=== PATIENT | female | born 1960 | race Caucasian/White ===

== ENCOUNTER → 2018-11-29 09:33 | Outpatient (CLI) | payer OTHER, SELFPAY ==
--- NOTE | 2018-11-29 09:36 | BI_ITS ---
MAMMOGRAPHY - BILATERAL SCREENING REASON FOR EXAM: Female, 58 years old. Routine annual screening examination. PERTINENT HISTORY: Non-contributory. TECHNIQUE: Digital bilateral breast ascencion (3D mammographic acquisition) in the CC and MLO projections. 2-D mediolateral oblique (MLO) and craniocaudad (CC) views of both breasts were obtained. CAD: Full Field Digital Mammography with Computer Added Detection was performed. COMPARISON: Comparison is made with prior study dated September 09, 2017 and July 02, 2016. FINDINGS: Breast Composition: The breasts are heterogeneously dense, which may obscure small masses. There are no dominant masses or suspicious calcifications. No other significant abnormalities are identified. There has been no significant change since the prior study. BI/SCREENING MAMM (CAD), BILAT IMPRESSION: Stable bilateral screening mammogram. Yearly follow-up mammogram recommended. (A) ASSESSMENT CATEGORY: BIRADS Category 1: Negative. A letter regarding these results will be sent to the patient by the facility within 30 days. Approximately 10% of breast cancers are not detected by mammography. A normal mammogram should not delay biopsy of a clinically suspicious abnormality. [id number] Electronically Signed: Hector Medrano MD at 14:48 EST , Service support ,
== END ==
PROVIDERS: Family Provider Internal Medicine; PCP Internal Medicine; Referring Provider Obstetrics & Gynecology; Visit Provider Obstetrics & Gynecology
DX: Z12.31 Encounter for screening mammogram for malignant neoplasm of breast (principal)
CPT/HCPCS: 77063; 77067

== ENCOUNTER → 2019-05-11 09:35 | Outpatient (CLI) | payer OTHER, SELFPAY ==
[2019-04-19 16:03] VITALS: BMI 20.7
--- NOTE | 2019-05-11 09:37 | ECHOD_ITS ---
Reason For Study: MURMUR Procedure This was a 2D Doppler, Color Flow transthoracic echocardiogram. Exam performed in department. Left Ventricle Normal LV size. Left ventricular systolic function is normal. The estimated ejection fraction is 65 %. No evidence for diastolic dysfunction. No regional wall motion abnormalities noted. Right Ventricle Normal RV size. Normal systolic function. Atria Normal left atrium. Normal right atrium. No doppler evidence for ASD. Mitral Valve There is no mitral annular calcification. Equivocal mitral valve prolapse. Trivial mitral valve insufficiency. Tricuspid Valve Normal tricuspid valve. Trivial tricuspid valve insufficiency. Right ventricular systolic pressure estimated to be 27 mmHg. Aortic Valve Trisinus/trileaflet aortic valve. Normal aortic valve. Pulmonic Valve The pulmonic valve is not well visualized. Great Vessels Normal sized aortic root. Pericardium/Pleural No pericardial effusion. MMode/2D Measurements & Calculations LVIDd: 4.3 cm IVSd: 0.58 cm Ao root diam: 2.5 cm LVIDs: 3.0 cm LVPWd: 0.72 cm RVDd: 3.1 cm FS: 30.6 % LAV(MOD-bp): 32.2 ml LVAd ap4: 24.7 cm2 SV(MOD-sp4): 44.0 ml LAV(MOD-bp) Indexed: 20.3 ml/m2 EDV(MOD-sp4): 70.4 ml LAV(MOD-sp2): 30.2 ml EDV(sp4-el): 74.0 ml LAV(MOD-sp4): 33.9 ml LVAs ap4: 13.7 cm2 ESV(MOD-sp4): 26.5 ml ESV(sp4-el): 26.7 ml EF(MOD-sp4): 62.4 % EF(sp4-el): 64.0 % SV(sp4-el): 47.4 ml LA A4 area: 14.3 cm2 LA dimension(2D): 3.1 cm RA A4 area: 10.9 cm2 Time Measurements MV dec time: 0.20 sec Doppler Measurements & Calculations MV E max artie: 100.4 cm/sec Lat Peak E' Artie: 9.8 cm/sec Med Peak E' Artie: 7.5 cm/sec MV A max artie: 75.6 cm/sec E/E' lat: 10.2 E/E' med: 13.3 MV E/A: 1.3 Ao V2 max: 154.6 cm/sec LV V1 max: 160.1 cm/sec PA V2 max: 89.2 cm/sec Ao max P.6 mmHg LV V1 max P.2 mmHg TR max artie: 242.8 cm/sec TR max P.6 mmHg Interpretation Summary Left ventricular systolic function is normal. The estimated ejection fraction is 65 %. Equivocal mitral valve prolapse. Trivial mitral valve insufficiency. Trivial tricuspid valve insufficiency. Right ventricular systolic pressure estimated to be 27 mmHg. No evidence for diastolic dysfunction. 2D echocardiographic and color flow doppler suggstive of a small VSD (0.3 mm) located in the high membranous area of the interventricular septum. Ordering Physician: Alex Diaz Referring Physician: EROS VANESSA Performed By: Dulce Alba RDCS
== END ==
PROVIDERS: Family Provider Internal Medicine; PCP Internal Medicine; Referring Provider Internal Medicine Cardiovascular Disease; Visit Provider Internal Medicine Cardiovascular Disease
DX: Q21.0 Ventricular septal defect (principal)
CPT/HCPCS: 93306

== ENCOUNTER → 2019-06-16 09:07 | Outpatient (CLI) | payer OTHER, SELFPAY ==
[2019-04-19 16:03] VITALS: BMI 20.7
--- NOTE | 2019-06-16 09:29 | US_ITS ---
STUDY: ULTRASOUND BREAST - RIGHT REASON FOR EXAM: Female, 59 years old. Pain in the retroareolar region. TECHNIQUE: Axial and longitudinal images of the RIGHT breast were performed with a high resolution ultrasound transducer. COMPARISON: Comparison is made with prior mammogram done earlier today. FINDINGS: RIGHT Breast: The retroareolar region of the right breast as well as the medial portion right breast was examined by ultrasound. There is homogeneous fibroglandular tissue. No sonographic abnormalities. US/Breast Limited Unilateral IMPRESSION: No sonographic abnormality is seen. ASSESSMENT CATEGORY: BIRADS Category 1: Negative. A letter regarding these results will be sent to the patient by the facility within 30 days. Electronically Signed: Hector Medrano, at 14:25 EDT , Service support ,
--- NOTE | 2019-06-16 09:29 | BI_ITS ---
MAMMOGRAPHY - UNILATERAL DIAGNOSTIC: RIGHT BREAST REASON FOR EXAM: Female, 59 years old. One-month history of right nipple pain. PERTINENT HISTORY: Non-contributory. TECHNIQUE: Digital unilateral breast chris (3D mammographic acquisition) in the CC and MLO projections. 2-D mediolateral oblique (MLO) and craniocaudad (CC) views of both breasts were obtained. CAD: Full Field Digital Mammography with Computer Added Detection was performed. COMPARISON: Comparison is made with prior study dated May 29, 2019 and September 09, 2017. FINDINGS: Breast Composition: The breasts are heterogeneously dense, which may obscure small masses. There are no dominant masses or suspicious calcifications. No other significant abnormalities are identified. There has been no significant change since the prior study. BI/Rt Brst Unilat Chris Add-On IMPRESSION: Stable unilateral diagnostic mammogram. Correlation with ultrasound of the left retroareolar region is recommended for further evaluation due to the patient's history. ASSESSMENT CATEGORY: BIRADS Category 0: Incomplete. Need additional imaging evaluation. A letter regarding these results will be sent to the patient by the facility within 30 days. Approximately 10% of breast cancers are not detected by mammography. A normal mammogram should not delay biopsy of a clinically suspicious abnormality. Electronically Signed: Hector Medrano, at 10:15 EDT , Service support ,
--- NOTE | 2019-06-16 09:29 | BI_ITS ---
MAMMOGRAPHY - UNILATERAL DIAGNOSTIC: RIGHT BREAST REASON FOR EXAM: Female, 59 years old. One-month history of right nipple pain. PERTINENT HISTORY: Non-contributory. TECHNIQUE: Digital unilateral breast ascencion (3D mammographic acquisition) in the CC and MLO projections. 2-D mediolateral oblique (MLO) and craniocaudad (CC) views of both breasts were obtained. CAD: Full Field Digital Mammography with Computer Added Detection was performed. COMPARISON: Comparison is made with prior study dated May 29, 2019 and September 09, 2017. FINDINGS: Breast Composition: The breasts are heterogeneously dense, which may obscure small masses. There are no dominant masses or suspicious calcifications. No other significant abnormalities are identified. There has been no significant change since the prior study. BI/DIAG MAMM W/CAD, UNILAT IMPRESSION: Stable unilateral diagnostic mammogram. Correlation with ultrasound of the left retroareolar region is recommended for further evaluation due to the patient's history. ASSESSMENT CATEGORY: BIRADS Category 0: Incomplete. Need additional imaging evaluation. A letter regarding these results will be sent to the patient by the facility within 30 days. Approximately 10% of breast cancers are not detected by mammography. A normal mammogram should not delay biopsy of a clinically suspicious abnormality. Electronically Signed: Hector Medrano, at 10:15 EDT , Service support ,
== END ==
PROVIDERS: Family Provider Internal Medicine; PCP Internal Medicine; Referring Provider Obstetrics & Gynecology; Visit Provider Obstetrics & Gynecology
DX: N64.4 Mastodynia (principal)
CPT/HCPCS: 76642; 77061; 77065; G0279

== ENCOUNTER → 2020-07-09 08:18 | Outpatient (CLI) | payer OTHER, SELFPAY ==
[2020-04-19 10:45] VITALS: BMI 21.2
--- NOTE | 2020-07-09 08:23 | BI_ITS ---
MAMMOGRAPHY - BILATERAL SCREENING REASON FOR EXAM: Female, 60 years old. Routine annual screening examination. PERTINENT HISTORY: Non-contributory. TECHNIQUE: Digital bilateral breast kareem (3D mammographic acquisition) in the CC and MLO projections. 2-D mediolateral oblique (MLO) and craniocaudad (CC) views of both breasts were obtained. CAD: Full Field Digital Mammography with Computer Added Detection was performed. COMPARISON: Comparison is made with prior examination dated 11/29/2018 and 06/16/2019. FINDINGS: Breast Composition: The breasts are heterogeneously dense, which may obscure small masses. There are no dominant masses or suspicious calcifications. No other significant abnormalities are identified. There has been no significant change since the prior study. BI/SCREEN MAMM (CAD) W/KAREEM BILAT IMPRESSION: Stable bilateral screening mammogram. Yearly follow-up mammogram recommended. (A) ASSESSMENT CATEGORY: BIRADS Category 1: Negative. A letter regarding these results will be sent to the patient by the facility within 30 days. Approximately 10% of breast cancers are not detected by mammography. A normal mammogram should not delay biopsy of a clinically suspicious abnormality. [id number] Electronically Signed: Hector Medrano, at 10:07 EDT , Service support ,
== END ==
PROVIDERS: PCP Internal Medicine; Visit Provider Advanced Practice Midwife
DX: Z12.31 Encounter for screening mammogram for malignant neoplasm of breast (principal)
CPT/HCPCS: 77063; 77067

== ENCOUNTER → 2021-07-22 08:15 | Outpatient (CLI) | payer OTHER, SELFPAY ==
[2020-04-19 10:45] VITALS: BMI 21.2
--- NOTE | 2021-07-22 08:20 | BI_ITS ---
MAMMOGRAPHY - BILATERAL SCREENING REASON FOR EXAM: Female, 61 years old. Routine annual screening examination. PERTINENT HISTORY: Non-contributory. TECHNIQUE: Digital bilateral breast kareem (3D mammographic acquisition) in the CC and MLO projections. 2-D mediolateral oblique (MLO) and craniocaudad (CC) views of both breasts were obtained. CAD: Full Field Digital Mammography with Computer Added Detection was performed. COMPARISON: Comparison is made with prior examination of 07/09/2020 and 06/16/2019. FINDINGS: Breast Composition: The breasts are heterogeneously dense, which may obscure small masses. There are no dominant masses or suspicious calcifications. No other significant abnormalities are identified. There has been no significant change since the prior study. BI/SCRN MAMM (CAD)W/KAREEM BILAT IMPRESSION: Stable bilateral screening mammogram. Yearly follow-up mammogram recommended. (A) ASSESSMENT CATEGORY: BIRADS Category 1: Negative. A letter regarding these results will be sent to the patient by the facility within 30 days. Approximately 10% of breast cancers are not detected by mammography. A normal mammogram should not delay biopsy of a clinically suspicious abnormality. [id number] Electronically Signed: Hector Medrano MD at 9:02 EDT , Service support ,
== END ==
PROVIDERS: PCP Internal Medicine; Referring Provider Student in an Organized Health Care Education/Training Program; Visit Provider Student in an Organized Health Care Education/Training Program
DX: Z12.31 Encounter for screening mammogram for malignant neoplasm of breast (principal)
CPT/HCPCS: 77063; 77067

== ENCOUNTER → 2021-10-16 10:51 | Outpatient (CLI) | payer OTHER, SELFPAY ==
--- NOTE | 2021-10-16 10:54 | ECHOD_ITS ---
Reason For Study: ARRHYTHMIA Procedure This was a 2D Doppler, Color Flow transthoracic echocardiogram. The exam was of adequate technical quality. Exam performed in department. Left Ventricle Normal LV size. Left ventricular systolic function is normal. The estimated ejection fraction is 65 %. Diastolic function is indeterminate. No regional wall motion abnormalities noted. Right Ventricle Normal RV size. Normal systolic function. Atria Normal left atrium. Normal right atrium. No doppler evidence for ASD. Mitral Valve There is no mitral annular calcification. Mild mitral valve prolapse. Trivial mitral valve insufficiency. Tricuspid Valve Normal tricuspid valve. Trivial tricuspid valve insufficiency. Unable to estimate RV systolic pressure due to insufficient tricuspid regurgitant envelope. Aortic Valve Trisinus/trileaflet aortic valve. Normal aortic valve. Pulmonic Valve The pulmonic valve is not well visualized. Great Vessels Normal sized aortic root. Pericardium/Pleural No pericardial effusion. MMode/2D Measurements & Calculations LVIDd: 4.5 cm IVSd: 0.85 cm Ao root diam: 2.4 cm LVIDs: 3.2 cm LVPWd: 0.88 cm RVDd: 2.7 cm FS: 27.7 % LAV(MOD-bp): 42.8 ml LA A4 area: 12.5 cm2 LA dimension(2D): 3.5 cm LAV(MOD-bp) Indexed: 25.6 ml/m2 LAV(MOD-sp2): 38.6 ml LAV(MOD-sp4): 35.0 ml RA A4 area: 10.5 cm2 Time Measurements MV dec time: 0.17 sec Doppler Measurements & Calculations MV E max artie: 99.2 cm/sec Lat Peak E' Artie: 6.7 cm/sec Med Peak E' Artie: 7.4 cm/sec MV A max artie: 74.5 cm/sec E/E' lat: 14.8 E/E' med: 13.4 MV E/A: 1.3 Ao V2 max: 133.1 cm/sec PA V2 max: 95.6 cm/sec Ao max P.1 mmHg ECHO/Echo Complete Interpretation Summary Left ventricular systolic function is normal. The estimated ejection fraction is 65 %. Mild mitral valve prolapse. Trivial mitral valve insufficiency. Trivial tricuspid valve insufficiency. Unable to estimate RV systolic pressure due to insufficient tricuspid regurgita nt envelope. Diastolic function is indeterminate. 2D echocardiographic and color flow doppler suggstive of a small VSD located in the high membranous area of the interventricular septum. Ordering Physician: Alex Diaz Referring Physician: Pina Velazco Performed By: Maureen Murcia, RDCS, RVT
== END ==
PROVIDERS: PCP Internal Medicine; Visit Provider Internal Medicine Cardiovascular Disease
DX: Q21.0 Ventricular septal defect (principal); R00.2 Palpitations; E78.00 Pure hypercholesterolemia, unspecified; Z86.79 Personal history of other diseases of the circulatory system
CPT/HCPCS: 93306

== ENCOUNTER → 2022-07-27 | Outpatient (CLI) | payer OTHER, SELFPAY ==
--- NOTE | 2022-07-27 09:55 | BI_ITS ---
MAMMOGRAPHY - BILATERAL SCREENING REASON FOR EXAM: Female, 62 years old. Routine annual screening examination. PERTINENT HISTORY: Non-contributory. TECHNIQUE: Digital bilateral breast kareem (3D mammographic acquisition) in the CC and MLO projections. 2-D mediolateral oblique (MLO) and craniocaudad (CC) views of both breasts were obtained. CAD: Full Field Digital Mammography with Computer Added Detection was performed. COMPARISON: Comparison is made with prior study dated 07/22/2021 and 07/09/2020. FINDINGS: Breast Composition: The breasts are heterogeneously dense, which may obscure small masses. There are no dominant masses or suspicious calcifications. No other significant abnormalities are identified. There has been no significant change since the prior study. BI/SCRN MAMM (CAD)W/KAREEM BILAT IMPRESSION: Stable bilateral screening mammogram. Yearly follow-up mammogram recommended. (A) ASSESSMENT CATEGORY: BIRADS Category 1: Negative. A letter regarding these results will be sent to the patient by the facility within 30 days. Approximately 10% of breast cancers are not detected by mammography. A normal mammogram should not delay biopsy of a clinically suspicious abnormality. [id number] Electronically Signed: Hector Medrano MD at 10:48 EDT ,
== END | disposition home or self-care (01) ==
LOC: OPBI 09:46
PROVIDERS: PCP Internal Medicine; Visit Provider Student in an Organized Health Care Education/Training Program
DX: Z12.31 Encounter for screening mammogram for malignant neoplasm of breast (principal)
CPT/HCPCS: 77063; 77067

== ENCOUNTER 2023-02-15 05:23 | Day surgery (SDC) | payer OTHER, SELFPAY ==
[2023-02-15] VITALS (7 sets, daily range): BP systolic 94–117; BP diastolic 47–69; PULSE 51–61; RESP 12–18; TEMP 36.3–36.5; O2SAT 97–99; BMI 22.8
[2023-02-15] MEDS: Lactated Ringers 1,000 ML 15 ML IV (06:04)
--- NOTE | 2023-02-15 06:30 | EGD_PTH ---
PATIENT: STEVE PRICE LOC: EN U#:[id number] AGE/SX: 63/F ROOM: RE02/15/[address]: Dr. Eliezer Whitehead DO : 1960 BED: DIS: 02/15/2023 SPEC #: [id number] RECD: 02/15/23 14:14 STATUS: JANET REQ #: [id number] ALFA: 02/15/23 06:[address]: Eliezer Whitehead DEPT: SURGICAL PATHOLOGY RECD BY: Sabrina Linares ENTERED: 02/16/23 09:37 SP TYPE: EGD BIOPSY OT DR: Dr. Pina Velazco DO Tissues: A - Esophagus, NOS B - COLON BIOPSY Procedures: Special Stain Group II Surgery Specimen Level IV Alcian Blue/PAS (control) HEADER OPERATION: [place] [place] DIAGNOSIS: Heartburn, history of colon polyps, hiatal hernia, family history colon cancer TISSUE SUBMITTED: A ? Biopsy distal esophagus, B ? Biopsy hepatic flexure polyp MICROSCOPIC DIAGNOSIS A. Distal esophagus, biopsy: Fragments of gastroesophageal mucosa with chronic inflammation. Intestinal metaplasia (goblet cell metaplasia) not identified. See comment. B. Hepatic flexure polyp, biopsy: Tubular adenoma. YOLY:shamir 02/17/2023 COMMENT A. Alcian blue/PAS stain with matched control is used in the evaluation of the specimen. MICROSCOPIC DESCRIPTION Slides are reviewed. GROSS DESCRIPTION A - Received in fixative is one container labeled with the patient's name and designated biopsy distal esophagus. The specimen consists of multiple irregular fragments of light guerrero soft tissue that in aggregate measure 1.0 x 0.3 x 0.1 cm. The specimen is totally submitted in one cassette. B - Received in fixative is one container labeled with the patient's name and designated biopsy hepatic flexure polyp. The specimen consists of two irregular fragments of light guerrero soft tissue that in aggregate measure 0.4 x 0.4 x 0.1 cm. The specimen is totally submitted in one cassette. / YOLY:shamir 02/16/2023 TC:1 CPT: 61042 x2, 80631
--- NOTE | 2023-02-15 06:30 | PCM.HP.BLA ---
History and Physical Date of Admission: 02/15/23 62 F who presents to the office today to establish with GI in order to update EGD and colonoscopy. She reports hx of hiatal hernia, gastric polyps, colon polyps, and FH colorectal cancer. Her last endoscopies were in 03/2017 at [facility]--fundic gland polyp, neg for dysplasia; tortuous colon, no specimens collected. She has intermittent heartburn, has never needed medication for it. Denies dysphagia, nausea, vomiting, early satiety, diarrhea, melena, hematochezia. She denies constipation, reports BM maybe every other day. Get occas discomfort LLQ if she isn't eating healthfully. Brother had gastrectomy, had severe hiatal hernia and multiple other health conditions Father had colon cancer, age 61 Paternal grandfather of rectal cancer ROS Const Constitutional: No fatigue ENT ENT: No difficulty swallowing Gastro GI: Positive for abdominal pain, constipation and heartburn; No belching, bloating, change in bowel habits, change in stool character, coffee ground emesis, cramping, diarrhea, difficulty swallowing, feeling full early, excessive flatus, incontinent of stools, Vomiting blood/hematemesis, Blood in stool, loose stools, Black,tarry stools, nausea/dyspepsia, pain with swallowing, vomiting or other Musc Musculoskeletal: No joint pain Skin Skin: No yellowing of the eye or itchy eyes Psych Psychiatric: No anxiety and No depression Endo Endocrine: No fatigue Aller/Imm Allergy/Immunologic: No itchy eyes Miguel/Lymp Hematologic/Lymphatic: No easy bleeding or easy bruising Exam Const General: cooperative, healthy appearing and comfortable Nutritional Appearance: average body habitus Orientation: alert, awake and oriented x3 Eyes Sclera: sclerae normal Neck Neck: normal visual inspection Chest Chest palpation & inspection: normal inspection of the chest Resp Effort & Inspection: normal respiratory effort GI Inspection: normal to inspection Quality Reporting Tobacco Screening ([facility] 138) Smoking Status: Never smoker Assessment and Plan Assessment and Plan (1) Heartburn: ?Status:?Chronic ?Plan: 62-year-old female with hiatal hernia, intermittent heartburn, history of gastric polyps, history of colon polyps, family history of colorectal cancer She will be scheduled for EGD to evaluate for esophagitis, hiatal hernia, gastric polyps, as well as colonoscopy to evaluate for polyps; follow-up in office 2 weeks later for discussion of biopsy results (2) FH: colon cancer in first degree relative <60 years old: ?Status:?Acute ?Plan: See above (3) History of colon polyps: ?Status:?Acute ?Plan: See above (4) Hiatal hernia: ?Status:?Acute ?Plan: See above I have examined the patient and the H&P has been reviewed. There are no clinical changes since date of exam.
--- NOTE | 2023-02-15 07:05 | OP.EGD_ITS ---
Patient Name: Ines Carlisle Procedure Date: 02/15/2023 6:20 AM Date of : 1960 Age: 63 Procedure: Upper GI endoscopy Indications: Heartburn Providers: Eliezer Whitehead DO Medicines: Monitored Anesthesia Care Patient Profile: This is a 63 year old female. Refer to note in patient chart for documentation of history and physical. Patient has symptoms of chronic heartburn. Complications: No immediate complications. Procedure: Pre-Anesthesia Assessment: - Prior to the procedure, a History and Physical was performed, and patient medications and allergies were reviewed. The risks and benefits of the procedure and the sedation options and risks were discussed with the patient. All questions were answered and informed consent was obtained. Patient identification and proposed procedure were verified by the physician. Mental Status Examination: normal. Prophylactic Antibiotics: The patient does not require prophylactic antibiotics. Prior Anticoagulants: The patient has taken no previous anticoagulant or antiplatelet agents. ASA Grade Assessment: II - A patient with mild systemic disease. After reviewing the risks and benefits, the patient was deemed in satisfactory condition to undergo the procedure. The anesthesia plan was to use monitored anesthesia care (MAC). Immediately prior to administration of medications, the patient was re-assessed for adequacy to receive sedatives. The heart rate, respiratory rate, oxygen saturations, blood pressure, adequacy of pulmonary ventilation, and response to care were monitored throughout the procedure. The physical status of the patient was re-assessed after the procedure. After obtaining informed consent, the endoscope was passed under direct vision. Throughout the procedure, the patient's blood pressure, pulse, and oxygen saturations were monitored continuously. The Colonoscope was introduced through the mouth, and advanced to the second part of duodenum. The upper GI endoscopy was accomplished without difficulty. The patient tolerated the procedure well. Scope In: 6:39:39 AM Scope Out: 6:42:57 AM Total Procedure Duration Time 0 hours 3 minutes 18 seconds Findings: LA Grade A (one or more mucosal breaks less than 5 mm, not extending between tops of 2 mucosal folds) esophagitis with no bleeding was found 38 to 39 cm from the incisors. Biopsies were taken with a cold forceps for histology. Verification of patient identification for the specimen was done. Estimated blood loss was minimal. A medium-sized hiatal hernia was present. A few 5 mm fundic gland polyps with no bleeding and no stigmata of recent bleeding were found in the stomach. The second portion of the duodenum was normal. Impression: - LA Grade A reflux esophagitis. Biopsied. - Medium-sized hiatal hernia. - A few gastric polyps. - Normal second portion of the duodenum. Recommendation: - Discharge patient to home. - Resume previous diet. - Continue present medications. - Await pathology results. Procedure Code(s): --- Professional --- 13103, Esophagogastroduodenoscopy, flexible, transoral; with biopsy, single or multiple CPT copyright 2017 [employer]. All rights reserved. The codes documented in this report are preliminary and upon manager business operations review may be revised to meet current compliance requirements. Eliezer Whitehead DO 02/15/2023 7:04:35 AM This report has been signed electronically. Number of Addenda: 0 Note Initiated On: 02/15/2023 6:20 AM
--- NOTE | 2023-02-15 07:05 | OP.CCLET_ITS ---
02/15/2023 Pina Velazco [address] [place] [address] Re : Upper GI endoscopy procedure for Ines Carlisle Dear Dr. Velazco This procedure was performed on Wednesday, February 15, 2023. My impressions and recommendations are as follows: Impressions : - LA Grade A reflux esophagitis. Biopsied. - Medium-sized hiatal hernia. - A few gastric polyps. - Normal second portion of the duodenum. Recommendations : - Discharge patient to home. - Resume previous diet. - Continue present medications. - Await pathology results. My findings are described in the full procedure note, which is enclosed. If I can be of further assistance, please feel free to contact me at . Sincerely, Eliezer Whitehead DO 02/15/2023 7:04:35 AM This report has been signed electronically.
--- NOTE | 2023-02-15 07:08 | OP.COLON_ITS ---
Patient Name: Ines Carlisle Procedure Date: 02/15/2023 6:43 AM Date of : 1960 Age: 63 Procedure: Colonoscopy Indications: Screening for colorectal malignant neoplasm, Screening in patient at increased risk: Family history of 1st-degree relative with colorectal cancer before age 60 years Providers: Eliezer Whitehead DO Medicines: Monitored Anesthesia Care Patient Profile: This is a 63 year old female. Refer to note in patient chart for documentation of history and physical. Patient has symptoms of chronic heartburn. Last Colonoscopy: several years ago. Complications: No immediate complications. Procedure: Pre-Anesthesia Assessment: - Prior to the procedure, a History and Physical was performed, and patient medications and allergies were reviewed. The risks and benefits of the procedure and the sedation options and risks were discussed with the patient. All questions were answered and informed consent was obtained. Patient identification and proposed procedure were verified by the physician. Mental Status Examination: normal. Prophylactic Antibiotics: The patient does not require prophylactic antibiotics. Prior Anticoagulants: The patient has taken no previous anticoagulant or antiplatelet agents. ASA Grade Assessment: II - A patient with mild systemic disease. After reviewing the risks and benefits, the patient was deemed in satisfactory condition to undergo the procedure. The anesthesia plan was to use monitored anesthesia care (MAC). Immediately prior to administration of medications, the patient was re-assessed for adequacy to receive sedatives. The heart rate, respiratory rate, oxygen saturations, blood pressure, adequacy of pulmonary ventilation, and response to care were monitored throughout the procedure. The physical status of the patient was re-assessed after the procedure. After I obtained informed consent, the scope was passed under direct vision. Throughout the procedure, the patient's blood pressure, pulse, and oxygen saturations were monitored continuously. The Colonoscope was introduced through the anus and advanced to the cecum, identified by appendiceal orifice and ileocecal valve. The colonoscopy was performed without difficulty. The patient tolerated the procedure well. The quality of the bowel preparation was adequate. Moderate Sedation: Moderate (conscious) sedation was personally administered by an anesthesia professional. The following parameters were monitored: oxygen saturation, heart rate, blood pressure, respiratory rate, EKG, adequacy of pulmonary ventilation, and response to care. Scope In: 6:44:31 AM Scope Withdrawal Time 0 hours 6 minutes 47 seconds Scope Out: 6:55:22 AM Total Procedure Duration Time 0 hours 10 minutes 51 seconds Findings: The perianal and digital rectal examinations were normal. Non-bleeding internal hemorrhoids were found during retroflexion. The hemorrhoids were Grade II (internal hemorrhoids that prolapse but reduce spontaneously). Multiple small and large-mouthed diverticula were found in the recto-sigmoid colon, sigmoid colon, hepatic flexure and ascending colon. A 5 mm polyp was found in the hepatic flexure. The polyp was sessile. The polyp was removed with a cold biopsy forceps. Resection and retrieval were complete. Verification of patient identification for the specimen was done. Estimated blood loss was minimal. Impression: - Non-bleeding internal hemorrhoids. - Diverticulosis in the recto-sigmoid colon, in the sigmoid colon, at the hepatic flexure and in the ascending colon. - One 5 mm polyp at the hepatic flexure, removed with a cold biopsy forceps. Resected and retrieved. Recommendation: - Repeat colonoscopy in 5 years for surveillance. - Continue present medications. Procedure Code(s): --- Professional --- 30103, Colonoscopy, flexible; with biopsy, single or multiple CPT copyright 2017 [employer]. All rights reserved. The codes documented in this report are preliminary and upon coater helper review may be revised to meet current compliance requirements. Eliezer Whitehead DO 02/15/2023 7:08:39 AM This report has been signed electronically. Number of Addenda: 0 Note Initiated On: 02/15/2023 6:43 AM
--- NOTE | 2023-02-15 07:09 | OP.CCLET_ITS ---
02/15/2023 Pina Velazco [address] [place] [address] Re : Colonoscopy procedure for Ines Carlisle Dear Dr. Velazco This procedure was performed on Wednesday, February 15, 2023. My impressions and recommendations are as follows: Impressions : - Non-bleeding internal hemorrhoids. - Diverticulosis in the recto-sigmoid colon, in the sigmoid colon, at the hepatic flexure and in the ascending colon. - One 5 mm polyp at the hepatic flexure, removed with a cold biopsy forceps. Resected and retrieved. Recommendations : - Repeat colonoscopy in 5 years for surveillance. - Continue present medications. My findings are described in the full procedure note, which is enclosed. If I can be of further assistance, please feel free to contact me at . Sincerely, Eliezer Whitehead, 02/15/2023 7:08:39 AM This report has been signed electronically.
== END 2023-02-15 07:44 | disposition home or self-care (01) ==
LOC: EN 05:23 → AC 05:24
PROVIDERS: PCP Internal Medicine; Referring Provider Internal Medicine; Visit Provider Internal Medicine Gastroenterology
PROC: 0DJD8ZZ Inspection of Lower Intestinal Tract, Via Natural or Artificial Opening Endoscopic (ICD-10-PCS; CPT 45378; principal; 2023-02-15 06:25)
DX: Z12.11 Encounter for screening for malignant neoplasm of colon (principal); E11.9 Type 2 diabetes mellitus without complications; K44.9 Diaphragmatic hernia without obstruction or gangrene; K64.1 Second degree hemorrhoids; K57.30 Diverticulosis of large intestine without perforation or abscess without bleeding; K31.7 Polyp of stomach and duodenum; K21.00 Gastro-esophageal reflux disease with esophagitis, without bleeding; Z86.010 Personal history of colon polyps; D12.3 Benign neoplasm of transverse colon; E78.00 Pure hypercholesterolemia, unspecified; Z79.899 Other long term (current) drug therapy
CPT/HCPCS: 43239; 45380; 88305; 88313; J7120; J2405

== ENCOUNTER → 2024-08-29 | Outpatient (CLI) | payer OTHER, SELFPAY ==
[2024-09-06 15:09] LABS: HPV APTIMA, High Risk Negative (Negative)
== END | disposition home or self-care (01) ==
LOC: LABSPEC 15:52
PROVIDERS: PCP Internal Medicine; Referring Provider Nurse Practitioner Women's Health; Visit Provider Nurse Practitioner Women's Health
DX: Z12.4 Encounter for screening for malignant neoplasm of cervix (principal)
CPT/HCPCS: 87624; 88175; G0145

== ENCOUNTER → 2024-09-27 | Outpatient (CLI) | payer OTHER, SELFPAY | END | disposition home or self-care (01) | LOC: OPBI 07:00 | PROVIDERS: PCP Internal Medicine; Referring Provider Nurse Practitioner Women's Health; Visit Provider Nurse Practitioner Women's Health | DX: Z12.31 Encounter for screening mammogram for malignant neoplasm of breast (principal) | CPT/HCPCS: 77063; 77067 ==

== ENCOUNTER → 2025-02-14 | Outpatient (CLI) | payer OTHER, SELFPAY ==
--- NOTE | 2025-02-14 08:53 | US_ITS ---
PROCEDURE: DIAG MAMM W/CAD, UNILAT; BREAST LIMITED UNILATERAL; LT BRST UNILAT KAREEM ADD ON REASON FOR EXAM: 65-year-old female presents for left breast skin dimpling in the lower inframammary fold x2 weeks. No family history of breast cancer. COMPARISON: Prior exam(s) dated 09/26/2024, 07/27/2022. TECHNIQUE: Left diagnostic digital breast tomosynthesis with 2D and 3D images. Computer aided detection. Also, targeted left breast ultrasound was performed. FINDINGS: MAMMOGRAM: TISSUE DENSITY: The breast is heterogeneously dense which may obscure small masses. The mammogram demonstrates that the patient has dense breasts. Supplemental screening with MRI may be considered for further evaluation. Left breast: The patient presents with left breast skin dimpling in the lower inframammary fold. However, there no mammographic abnormality seen in the left lower inframammary fold. Also, there is an irregular high density mass in the lower inner left breast at middle depth. ULTRASOUND: Ultrasound performed of the area of patient's concern in the lower inner left breast along the inframammary fold demonstrates no suspicious sonographic findings. There is an irregular hypoechoic mass in the left breast at 7 o'clock 3 cm from the nipple, measuring 0.9 x 0.5 x 0.4 cm. This mass correlates with the mammographic finding. There are 2 architecturally normal-appearing left axillary lymph nodes. US/Breast Limited Unilateral IMPRESSION: 1. The area of patient's concern/skin changes in the left breast demonstrates no suspicious mammographic or sonographic findings. 2. Suspicious irregular mass in the left breast at 7 o'clock 3 cm from the nip ple requires further evaluation. Recommend tissue sampling with ultrasound-guided core needle biopsy. BI-RADS 4: SUSPICIOUS ABNORMALITY. Reading Location: [id number]
--- NOTE | 2025-02-14 09:00 | BI_ITS ---
PROCEDURE: DIAG MAMM W/CAD, UNILAT; BREAST LIMITED UNILATERAL; LT BRST UNILAT KAREEM ADD ON REASON FOR EXAM: 65-year-old female presents for left breast skin dimpling in the lower inframammary fold x2 weeks. No family history of breast cancer. COMPARISON: Prior exam(s) dated 09/26/2024, 07/27/2022. TECHNIQUE: Left diagnostic digital breast tomosynthesis with 2D and 3D images. Computer aided detection. Also, targeted left breast ultrasound was performed. FINDINGS: MAMMOGRAM: TISSUE DENSITY: The breast is heterogeneously dense which may obscure small masses. The mammogram demonstrates that the patient has dense breasts. Supplemental screening with MRI may be considered for further evaluation. Left breast: The patient presents with left breast skin dimpling in the lower inframammary fold. However, there no mammographic abnormality seen in the left lower inframammary fold. Also, there is an irregular high density mass in the lower inner left breast at middle depth. ULTRASOUND: Ultrasound performed of the area of patient's concern in the lower inner left breast along the inframammary fold demonstrates no suspicious sonographic findings. There is an irregular hypoechoic mass in the left breast at 7 o'clock 3 cm from the nipple, measuring 0.9 x 0.5 x 0.4 cm. This mass correlates with the mammographic finding. There are 2 architecturally normal-appearing left axillary lymph nodes. BI/Lt Brst Unilat Kareem Add On IMPRESSION: 1. The area of patient's concern/skin changes in the left breast demonstrates no suspicious mammographic or sonographic findings. 2. Suspicious irregular mass in the left breast at 7 o'clock 3 cm from the nip ple requires further evaluation. Recommend tissue sampling with ultrasound-guided core needle biopsy. BI-RADS 4: SUSPICIOUS ABNORMALITY. Reading Location: [id number]
--- NOTE | 2025-02-23 12:55 | BRBX_PTH ---
PATIENT: STEVE PRICE LOC: [facility] U#:[id number] AGE/SX: 65/F ROOM: RE02/14/[address]: CARMEN Mcarthur : 1960 BED: DIS: 02/14/2025 SPEC #: [id number] RECD: 02/23/25 13:16 STATUS: JANET REQ #: [id number] ALFA: 02/23/25 12:[address]: Tracy Melo NP DEPT: SURGICAL PATHOLOGY RECD BY: Oleg Jeffers ENTERED: 02/23/25 13:44 SP TYPE: BREAST BX OTHR DR: Dr. Pina Velazco DO Tissues: A - Left breast, NOS Procedures: Immunohistochemical Stains Surgery Specimen Level IV IHC Stain ADDITIONAL HEADER OPERATION: Ultrasound guided left breast biopsy PRE-OP DIAGNOSIS: Left 7o'clock +3 TISSUE SUBMITTED: A- Left breast biopsy Ischemic Time: 1 minute Fixation Time: 8 hours MICROSCOPIC DIAGNOSIS A. 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 All matched controls reacted appropriately. These tests were developed and their performance characteristics determined by [facility]. They may not have been cleared or approved by the U.S. Food and Drug Administration. The FDA has determined that such clearance or approval is not necessary.? The above immunohistochemical/dualISH?markers are ordered and reviewed by the Pathologist. GROSS DESCRIPTION A. Received in formalin in a container labeled with the patient's name, date of , and LT breast 7:00 +3 are 3 guerrero-yellow, cylindrical core biopsies ranging from 0.8 x 0.2 cm to 1.3 x 0.3 cm, with multiple core biopsy fragments measuring 1.3 x 1.0 x 0.3 cm in aggregate. Submitted in toto as follows:A1. 3 coresA2. Core biopsy fragments Total formalin fixation time: Between 6 and [address] [facility] 02/14/2025 CPT:76354,79193,43259m3 ADDENDUM ADDENDUM ADDENDUM ADDENDUM ADDENDUM ADDENDUM ADDENDUM ADDENDUM ADDENDUM ADDENDUM ADDENDUM ADDENDUM ADDENDUM ADDENDUM ADDENDUM ADDENDUM ADDENDUM ADDENDUM ADDENDUM 07/03/2025 08:38 ADDENDUM 07/03/2025 08:38 ADDENDUM 07/03/2025 08:38 ADDENDUM 07/03/2025 08:38 ADDENDUM 07/03/2025 08:38 This addendum is added to incorporate an outside pathology consultation report. The case was examined at [facility] by Dr. Ibarra (#[id number]) and the following diagnosis was rendered. A. Breast, left, 7:00, 3cm from nipple, biopsy: Invasive ductal carcinoma, provisional Jonnie Grade 2, measuring at least 7mm in greatest dimension. Estrogen receptor: Positive (91-100%, strong intensity; outside slide review). Progesterone receptor: Positive (71-80%, moderate to strong intensity; outside slide review). HER2 IHC: Negative (score 0; outside slide review). COMMENT: Review of the provided E-cadherin immunohistochemical stained slides, with the appropriate controls, confirms intact membranous expression in carcinoma cells, supporting ductal phenotype. Please see complete above mentioned consultation report in EMR
== END | disposition home or self-care (01) ==
LOC: OPBI 08:51
PROVIDERS: PCP Internal Medicine; Referring Provider Nurse Practitioner Women's Health; Visit Provider Nurse Practitioner Women's Health
DX: N63.20 Unspecified lump in the left breast, unspecified quadrant (principal); R23.4 Changes in skin texture
CPT/HCPCS: 76642; 77061; 77065; G0279

== ENCOUNTER → 2025-02-23 | Outpatient (CLI) | payer OTHER, SELFPAY ==
--- NOTE | 2025-02-23 11:56 | US_ITS ---
PROCEDURE: US BREAST BIOPSY 1ST LESION 02/23/2025 REASON FOR EXAM: F, Age 65 y/o , LEFT BREAST MASS COMPARISON: Prior exam(s) dating back to February 14, 2025.. TECHNIQUE: Ultrasound-guided breast biopsy. FINDINGS: MAMMOGRAM: TISSUE DENSITY: The breasts are heterogeneously dense which may obscure small masses. A tissue clip marker is seen in the deep central medial aspect of the left breast. ULTRASOUND: Under direct sonographic guidance, the surgeon performed core biopsies of the 8 mm x 5 mm x 9 mm nodule at the 7 o'clock position of the breast at 3 cm from the nipple. US/US Breast Biopsy 1st Lesion IMPRESSION: Status post ultrasound-guided breast biopsy. A tissue clip marker is seen in the deep central medial aspect of the breast. Reading Location: [place] [id number]
--- NOTE | 2025-02-23 12:54 | PCM.OPRPT ---
Problems Associated Problem List Diagnoses (1) Abnormal ultrasound of breast: Procedures Integumentary Add On Codes: 40342 Bx breast add lesion us imag Operative Report (Standard) Operative Information Date of Procedure: 02/23/25 Pre-Operative Diagnosis: Abnormal left breast mammogram and ultrasound Post-Operative Diagnosis: Same Surgery/Procedure Performed: Ultrasound-guided left breast mammotome biopsy. coffee break attendant: No Type of Anesthesia: Local Procedure Start Time: 12:35 Procedure Stop Time: 12:50 Select all DRAINS/GRAFTS/IMPLANTS that apply: None Estimated Blood Loss: Minimal Specimen collected: Yes Description of specimen(s) removed: Left breast tissue Description of surgery: The patient is a 65-year-old female who was recently seen through the office with an abnormal left breast mammogram and ultrasound. This is a small lesion that I was unable to adequately reproduce in the office using ultrasound. As a result I recommend this be biopsied as a mammotome biopsy performed in the ultrasound suite using their ultrasound machine. We discussed the details of the planned procedure including the risk benefits and alternatives and she wished to proceed. After obtaining informed consent, the lesion in the left breast at about the 7 o'clock position was identified using ultrasound. Local anesthetic was injected in and around the lesion and a mammotome biopsy device was inserted after a small opening was made in the skin using #11 blade. Multiple suction biopsies were obtained with good tissue sampling under ultrasound guidance. Patient tolerated this well. A marking clip was then deployed also under ultrasound guidance. Manual pressure was held in the area for several minutes and then a Steri-Strip and OpSite dressing was applied. She tolerated this well. I will contact her with pathology results once they become available Surgical Findings: See procedure note Complications Complications: No Admit VTE Documentation VTE Present on Admission: No VTE Mechan Device Prophylaxis: SCD's VTE Pharm Prophylaxis ordered?: No Reason prophylaxis not ordered: Treatment Not Indicated
--- NOTE | 2025-02-23 12:58 | BI_ITS ---
EXAM: Digital unilateral mammogram left breast. CLINICAL HISTORY: Patient had a prior left breast biopsy. The biopsy was benign. Patient thought she saw some dimpling in the lower inferior mammary fold area 2 weeks ago. She was unable to palpate a lump in this location. The skin is not red. There is no swelling. Evaluate. COMPARISON: Mammogram dated 02/14/2025 and 09/26/2024 TECHNIQUE: Digital CC and MLO views of the left breast were performed. FINDINGS: There is no obvious discrete mammographic abnormality to correlate to the dimpling sensation that the patient had noticed. Benign-appearing round calcifications are seen in the breast. A radiopaque clip is seen in the medial, far posterior aspect of the breast. The biopsy was benign. This area appears unremarkable. There are no suspicious masses or suspicious calcifications are seen in the left breast. BI/DIAG MAMM W/CAD, UNILAT IMPRESSION: BI-RADS category: B/2. Benign. RECOMMENDATION: The patient should continue performing monthly self-breast exam s. If the area of dimpling becomes worse, targeted ultrasound should be performed. Otherwise, the patient should return in September 2025 for routine yearly screening mammography. Reading Location: [id number]
== END | disposition home or self-care (01) ==
LOC: OPUS 11:52
PROVIDERS: PCP Internal Medicine; Referring Provider Surgery; Visit Provider Surgery
DX: C50.312 Malignant neoplasm of lower-inner quadrant of left female breast (principal); Z17.0 Estrogen receptor positive status [ER+]
CPT/HCPCS: 19083; 77065

== ENCOUNTER → 2025-03-30 | Outpatient (CLI) | payer OTHER, SELFPAY ==
--- NOTE | 2025-03-30 10:51 | MRI_ITS ---
PROCEDURE: BREAST BILATERAL W/O AND W 03/30/2025 REASON FOR EXAM: BREAST CANCER Lung and bruising of the left breast. TECHNIQUE: Bilateral breast MRI using a dedicated bilateral breast coil before and following intravenous contrast. Images reviewed with subtraction and DynaCAD. CONTRAST: 13 cc Clariscan IV COMPARISON: Mammogram dated 02/14/2025, 03/2025, 09/26/2024, and 04/2022. A limited left breast ultrasound dated 02/14/2025 was also reviewed. FINDINGS: Amount of Fibroglandular Tissue: Heterogeneous fibroglandular tissue. Background Parenchymal Enhancement: Minimal RIGHT Breast: No suspicious mass or non-mass enhancement. LEFT Breast: There is an 8 mm spiculated abnormal enhancing mass in the lower- inner quadrant of the left breast approximately 3 cm from the nipple. This correlates to the mass that was biopsied at the 7 o'clock, 3 cm from nipple position and shown to represent a malignancy. There are 3 additional equivocally enhancing masses in the superior aspect of the left breast located 16 mm from the nipple, 49 mm from the nipple and 35 mm from the nipple. These all measure less than 6 mm in size. Ultrasonography of the entire superior aspect of the left breast is recommended for further evaluation. Other Findings: No suspicious axillary or internal mammary lymph nodes. Visualized portions of the thoracic and abdominal viscera are unremarkable. MRI/Breast Bilateral W/O and W IMPRESSION: OVERALL FINAL ASSESSMENT: BIRADS 6 KNOWN CANCER Surgical consultation is recommended as well as radiation oncology and medical oncology consultation. Ultrasonography of the entire superior aspect of the left breast is also recommended for further evalu ation of the enhancing masses on today's MRI exam. Reading Location: [id number]
== END | disposition home or self-care (01) ==
LOC: MRI 10:49
PROVIDERS: PCP Internal Medicine; Referring Provider Surgery; Visit Provider Surgery
DX: C50.912 Malignant neoplasm of unspecified site of left female breast (principal)
CPT/HCPCS: 77049; A9575; A4216; C8908

== ENCOUNTER → 2025-04-12 | Outpatient (CLI) | payer OTHER, SELFPAY ==
[2025-04-12 07:59] LABS: Bacteria 0 SEEN /hpf (None Seen)
[2025-04-12 09:18] LABS: Color, Urine Yellow (Yellow); Glucose, Dipstick Normal (Normal); Ketone-Dipstick Negative (Negative); Leukocyte Esterase-Dipstick 25 /ul (Negative); Nitrite-Dipstick Negative (Negative); Occult Blood-Urine 50 /ul (Negative); Protein-Dipstick 15 mg/dl (Negative); Urine Bilirubin Dipstick Negative (Negative); Urine Clarity Clear (Clear); Urine Urobilinogen Normal (Normal)
[2025-04-12 09:29] LABS: Absolute Lymphocyte Count 0.83 X10^3/uL (0.83-4.51); Absolute Neutrophil Count 4.2 X10^3/uL (2.0-7.7); Basophil# 0.05 X10^3/uL; Basophil% 0.9 % (0-1); Eosinophil# 0.14 X10^3/uL; Eosinophils% 2.4 % (0-5); Hematocrit 39.7 % (37-47); Hemoglobin 13.1 g/dL (12.0-15.0); Lymphocyte # 0.83 X10^3/ul (0.83-4.51); Lymphocyte % 14.4 % (19-41); Mean Corpuscular Hgb 30.1 pg (27.0-32.0); Mean Corpuscular Volume 91.3 fL (81-99); Mean Platelet Vol. 10.1 fl (6.2-12.0); Monocyte# 0.57 X10^3/uL; Monocyte% 9.9 % (0-10); NRBC Flagged by Analyzer 0 % (0-5); Neutrophil # 4.17 X10^3/uL (2.7-7.7); Neutrophil % 72.1 % (47-70); Platelet Count 222 K/mm3 (150-450); RBC Distribution Width CV 12.6 % (11.6-14.6); RBC Distribution Width SD 41.9 fl (35.1-43.9); Red Blood Count 4.35 M/mm3 (4.2-5.4); White Blood Count 5.8 K/mm3 (4.4-11.0)
[2025-04-12 09:30] LABS: Squamous Epithelial Cells - UA 0-5 SEEN /hpf (5-10); White Blood Cells 0-5 SEEN /hpf (0-5)
[2025-04-12 09:31] LABS: Mucous, Urine 1+ /hpf (<or=2+); Red Blood Cells-Urine 0-5 SEEN /hpf (0-5)
[2025-04-12 09:57] LABS: Microalbumin,Random Urine < 12.0 mg/L (NO RANGE EST.); Microalbumin:Creatinine Ratio UNABLE TO CALCULATE mg/g CRE
[2025-04-12 10:17] LABS: ALB/GLOB Ratio 1.5 RATIO (0.9-2.4); AST(SGOT) 26 U/L (<=31); Alanine Aminotransfer ALT/SGPT 23 U/L (<=34); Albumin, Serum 4.4 g/dL (3.4-4.8); Alkaline Phosphatase 70 U/L (35-104); Anion Gap 12 (5-15); BUN 17 mg/dL (4-19); BUN/Creat Ratio 17.9 RATIO (10-20); Calcium,Total 9.5 mg/dL (7.6-11.0); Carbon Dioxide 23.7 mmol/L (21.0-32.0); Chloride 105 mmol/L (98-108); Cholesterol 247 mg/dL (<=200); Creatinine, Serum 0.96 mg/dL (0.70-1.20); EST Glomerular Filtration Rate 66 (>60); Glucose 96 mg/dL (70-99); High Density Lipoprotein 73 mg/dL; Low Density Lipoprotein Calc. 145 mg/dL; Potassium 4.1 mmol/L (3.3-5.1); Protein, Total 7.5 g/dL (5.9-8.4); Sodium Level 140 mmol/L (133-145); Total Bilirubin 0.51 mg/dL (0.00-1.30); Triglycerides 145 mg/dL; Very Low Density Lipoprotein 29 mg/dL (5-40); Vitamin D,25 Hydroxy 59.3 ng/mL (30-100); cholesterol:hdl ratio screen 3.37
== END | disposition home or self-care (01) ==
PROVIDERS: PCP Internal Medicine; Referring Provider Internal Medicine; Visit Provider Internal Medicine
DX: E78.5 Hyperlipidemia, unspecified (principal); E55.9 Vitamin D deficiency, unspecified; R73.09 Other abnormal glucose
CPT/HCPCS: 80053; 80061; 81001; 82043; 82306; 82570; 84443; 85025

== ENCOUNTER → 2025-09-05 | Outpatient (CLI) | payer OTHER, SELFPAY ==
[2025-09-05 15:59] LABS: Color, Urine Yellow (Yellow); Glucose, Dipstick Normal (Normal); Ketone-Dipstick Negative (Negative); Leukocyte Esterase-Dipstick 25 /ul (Negative); Nitrite-Dipstick Negative (Negative); Occult Blood-Urine 50 /ul (Negative); Protein-Dipstick 15 mg/dl (Negative); Specific Gravity, Urine 1.020 (1.002-1.030); Urine Bilirubin Dipstick Negative (Negative)
[2025-09-05 16:06] LABS: Mucous, Urine 0 SEEN /hpf (<or=2+)
[2025-09-05 16:08] LABS: Red Blood Cells-Urine 0-5 SEEN /hpf (0-5); Squamous Epithelial Cells - UA 0-5 SEEN /hpf (5-10)
[2025-09-05 18:20] LABS: Vitamin D,25 Hydroxy 54.4 ng/mL (30-100)
== END | disposition home or self-care (01) ==
LOC: CIMLAB 13:28
PROVIDERS: PCP Internal Medicine; Referring Provider Internal Medicine; Visit Provider Internal Medicine
DX: N39.0 Urinary tract infection, site not specified (principal); E11.9 Type 2 diabetes mellitus without complications; E55.9 Vitamin D deficiency, unspecified
CPT/HCPCS: 36415; 81001; 82306; 83036; 87077; 87086; 87088; 87186

== ENCOUNTER → 2025-10-17 | Outpatient (CLI) | payer OTHER, SELFPAY ==
--- NOTE | 2025-04-12 07:33 | EKG12_ITS ---
Test Reason : PREOP Blood Pressure : */* mmHG Vent. Rate : 60 BPM Atrial Rate : 60 BPM P-R Int : 144 ms QRS Dur : 78 ms QT Int : 404 ms P-R-T Axes : 55 52 72 degrees QTcB Int : 404 ms Normal sinus rhythm Normal ECG Confirmed by Salazar Alba ([id number]), editor city CHELSIE JOHNSON ([id number]) on 04/13/2025 6:42:50 AM Referred By: Jorge Oleary Confirmed By: Salazar Alba
--- NOTE | 2025-04-12 11:10 | PAT.ANE_ITS ---
Pre-Assessment Diagnosis/Proposed Procedure Planned Operative Procedure(s): BILAT NIPPLE SPARING MASTECTOMIES WITH LEFT SENTINEL LYMPH NODE BIOPSY WITH RADIOTRACER PER DR BERTRAND IMPLANT BASED BREAST RECONSTRUCTION AFTER MASTECTOMY POSS LYMPHVENOUS ANASTOMOSIS PER DR RODRIGUEZ Anesthesia History Anesthesia History - portal administrator: Anesthesia History - portal administrator Hx Hospitalization No 04/11/25 14:44 Any Problems With Anesthesia No 04/11/25 14:44 Cholinesterase deficiency No 04/11/25 14:44 You/Your Family Experience No 04/11/25 14:44 fever (hyperthermia) with Relationship Recent Exposure to Contagious No 02/15/23 05:54 Disease Does patient have nerve No 04/11/25 14:44 stimulator Patient instructed to have device shut off --Does patient have Pacemaker or ICD? When Was Last Pacemaker Check QUESTION #4 FULL TEXT: You/Your Family Experience fever (hyperthermia) with Anesthesia Last Oral Intake Last Oral intake: Last Oral Intake NPO since Meds taken in AM with sips of water? Meds patient instructed to take am of surgery PONV PONV - portal administrator: PONV - portal administrator Female Yes 04/11/25 14:44 HX of Motion Sickness No 04/11/25 14:44 HX of N/V After Surgery No 04/11/25 14:44 Non-Smoker Yes 04/11/25 14:44 Duration of Surgery greater Yes 04/11/25 14:44 than 60 minutes Number of Risk Factors 3 04/11/25 14:44 PONV Score Moderate Risk 04/11/25 14:44 Height & Weight Height & Weight: Anesthesia: Height & Weight Height 5 ft 4 in 03/21/25 14:07 Respiratory Assessment Respiratory Assessment - portal administrator: Respiratory Tract Infection Hx - portal administrator Hx Respiratory Tract Infection No 04/11/25 14:44 STOP Sleep Apnea STOP Sleep Apnea - portal administrator: STOP Sleep Apnea - portal administrator Hx Hypertension Yes: 2002 POST ONLY 04/11/25 14:44 Hx Sleep Apnea No 04/11/25 14:44 CPAP BIPAP Do you snore loudly (louder Yes 04/11/25 14:44 than talking or can be heard Do you often feel tired/ No 04/11/25 14:44 fatigued/ sleepy during daytime? Has anyone observed you stop No 04/11/25 14:44 breathing during sleep? STOP Results Positive 04/11/25 14:44 QUESTION #5 FULL TEXT : Do you snore loudly (louder than talking or can be heard through closed doors)? 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 Specify any problems Hx of Preganancy in last 3 No 04/11/25 14:44 Months Nurse Filling Out Transfusion DSCHRIBER 04/11/25 14:44 & Questions: Date: 04/11/25 04/11/25 14:44 Time: 14:46 04/11/25 14:44 Patient unable to answer at this time (ie. confused, unrespo /Reproduction History /Reproductive History - portal administrator: /Reproductive Hx- portal administrator Hx Now No 04/11/25 14:44 Gestational Age (in weeks): EDC: Hx Hx Para Hx Section SAB No 04/11/25 14:44 PFSH Medical History (Updated 04/11/25 @ 15:08 by Katelynn Rossi) Cancer Injury of head and neck History of hiatal hernia History of diverticulitis Hypertension History of echocardiogram Normal Holter exam Post-menopausal Anxiety Alcohol use Diabetes High cholesterol Heartburn Non-smoker Shortness of breath on exertion Cardiology follow-up encounter Hiatal hernia History of colon polyps Vitamin D deficiency Depression Osteopenia Hyperglycemia Ventricular ectopy Nonrheumatic mitral (valve) prolapse Sinus bradycardia Hyperlipidemia H/O tachycardia-bradycardia syndrome Ventricular septal defect Palpitations Cardiac murmur Abnormal electrocardiogram Home Medications ?Medication ?Instructions ?Recorded ?Last Taken ?Type cholecalciferol (vitamin D3) 125 5,000 unit PO QODAY 0 11/30/22 Unknown History mcg (5,000 unit) capsule calcium polycarbophil 625 mg 1,250 mg PO DAILY PRN con stipation 04/11/25 Unknown History tablet (FiberCon) naproxen sodium 220 mg capsule 220 mg PO BID PRN pain 04/11/25 Unknown History (Aleve) sertraline 100 mg tablet 50 mg PO DAILY 04/11/25 Unkn own History simvastatin 20 mg tablet 10 mg PO QODAY 04/11/25 Unkn own History Allergy/AdvReac Type Severity Reaction Status Date / Time fluconazole (From Diflucan) Allergy Severe Hives Verified 04/11/25 14:41 Penicillins Allergy Severe Hives Verified 04/11/25 14:41 erythromycin base AdvReac Unknown Unknown Verified 04/11/25 14:41 Family History Mother Diabetes Hypertension Father Colon cancer Grandfather Cancer Paternal- Rectal Surgical History (Updated 04/11/25 @ 14:56 by Katelynn Rossi) History of esophagogastroduodenoscopy (EGD) Hx of colonoscopy S/P LASIK surgery of both eyes History of carpal tunnel surgery Social History household members: spouse current occupational status: employed 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 Sinus bradycardia. Echo (EF%) pertinent findings: 10/16/2021. EF 65%. Small ventricular septal defect noted. Consult pertinent findings: Cardiology 11/30/2022. History of tach ycardia/bradycardia syndrome. Chronic. Stable. Continue to monitor. Chronic palpitations. Stable. Ventricular septal defect. Chronic. Stable. Recommendation Anesthesia Recommendation Anesthesia recommendation: OPTIMIZED for anesthesia
== END | disposition home or self-care (01) ==
LOC: PAT 13:11
PROVIDERS: PCP Internal Medicine; Referring Provider Surgery; Visit Provider Surgery
DX: Z01.810 Encounter for preprocedural cardiovascular examination (principal)
CPT/HCPCS: 93005